=== PATIENT | female | born 1935 ===

== ENCOUNTER 2018-06-25 14:21 | Outpatient (CLI) | payer OTHER ==
[~2018-06-25] VITALS: Ht 157.5 cm; Wt 68.9 kg
== END 2018-06-25 14:40 | disposition home or self-care (01) ==
LOC: OFIC 805 14:21
DX: H90.42 Sensorineural hearing loss, unilateral, left ear, with unrestricted hearing on the contralateral side (principal); R42 Dizziness and giddiness

== ENCOUNTER 2018-07-09 10:57 | Outpatient (CLI) | payer OTHER ==
[~2018-07-09] VITALS: Ht 152.4 cm; Wt 68.9 kg
== END 2018-07-09 11:14 | disposition home or self-care (01) ==
LOC: OFIC 805 10:57
DX: H90.3 Sensorineural hearing loss, bilateral (principal); R42 Dizziness and giddiness

== ENCOUNTER 2018-07-26 11:14 | Outpatient (CLI) | payer OTHER ==
[~2018-07-26] VITALS: Ht 152.4 cm; Wt 68.9 kg
== END 2018-07-26 11:30 | disposition home or self-care (01) ==
LOC: OFIC 805 11:14
DX: H90.3 Sensorineural hearing loss, bilateral (principal); H81.90 Unspecified disorder of vestibular function, unspecified ear